=== PATIENT | female | born 1995 | race Caucasian/White ===

== ENCOUNTER 2017-11-24 11:17 | Emergency (ER) | payer OTHER ==
[2017-11-24] MEDS ORDERED: CEFTRIAXONE/SWI 1gm 1 GM/10 ML SYR ONE (12:07)
[2017-11-24] MEDS ORDERED: FENTANYL CITR 100 MCG/2 ML ONE (12:07)
[2017-11-24] MEDS ORDERED: ONDANSETRON 4 MG/2 ML VIAL ONE (12:07)
[2017-11-24 12:19] LABS: Urine Blood 3+ (NEG); Urine Glucose NEGATIVE (NEG); Urine Protein 3+ (NEG)
[2017-11-24 12:20] LABS: Urine Bacteria 20-50 /HPF (<20); Urine RBC 20-50 /HPF (NONE SEEN)
[2017-11-24 12:21] LABS: Urine Culture Reflex Order REFLEXED
[2017-11-24 12:22] LABS: Absolute Lymphocytes (CBC) 1.9 K/uL (0.7-4.9); Absolute Monocytes 0.9 K/uL (0.1-1.3); Absolute Neutrophil 6.5 K/uL (1.8-8.0); Basophils % 0.4 % (0-1.3); Hematocrit 41.6 % (36.0-45.0); Lymphocytes % 20.2 % (15.3-44.8); MCH 31.2 pg (27.0-35.0); MCV 89.9 fL (80-100); MPV 8.7 fL (7.6-11.3); Monocytes % 9.1 % (3.3-12.3); RBC Red Blood Cell Count 4.63 M/uL (3.86-4.86)
[2017-11-24 12:28] LABS: Potassium 3.8 mmol/L (3.5-5.1)
--- NOTE | 2017-11-24 12:55 | RAD REPORT ---
EXAM DESCRIPTION: CTAbdomen Pelvis W Contrast - 11/24/2017 12:40 pm CLINICAL HISTORY: Abdominal pain. iv only;Abd pain COMPARISON: CT ABD PELVIS W CONTRAST dated 01/23/2013 TECHNIQUE: Biphasic CT imaging of the abdomen and pelvis was performed with 100 ml non-ionic IV cont rast. All CT scans are performed using dose optimization technique as appropriate and may include automated exposure control or mA/KV adjustment according to patient size. FINDINGS: The lung bases are clear. The liver, spleen, pancreas, adrenal glands and kidneys are within normal limits. No bowel obstruction, free air, free fluid or abscess. The appendix is normal. No evidence of signi ficant lymphadenopathy. No suspicious bony findings. Urinary bladder wall is thickened with mucosal enhancement suggesting cy stitis. IMPRESSION: Findings suspicious for cystitis are noted.
--- NOTE | 2017-11-24 13:00 | ER ---
Nurse's Notes [facility] Name: Raysa Young Age: 22 yrs Sex: Female : 1995 Arrival Date: 11/24/2017 Time: 11:21 Bed 19 Private MD: None, None Diagnosis: Acute cystitis with hematuria Presentation: 11/24 11:30 Presenting complaint: Patient states: right side flank pain for several days, c/o em burning with urination and frequency for about 10 days, denies N/V, fever. Transition of care: patient was not received from another setting of care. Onset of symptoms was November 13, 2017. Risk Assessment: Do you want to hurt yourself or someone else? Patient reports no desire to harm self or others. Initial Sepsis Screen: Does the patient meet any 2 criteria? No. Patient's initial sepsis screen is negative. Does the patient have a suspected source of infection? No. Patient's initial sepsis screen is negative. Care prior to arrival: None. 11:30 Method Of Arrival: Ambulatory em 11:30 Acuity: JANET 3 iw Triage Assessment: 11:33 General: Appears in no apparent distress. comfortable, Behavior is calm, cooperative. em Pain: Complains of pain in right low back. Musculoskeletal: Capillary refill < 3 seconds, Range of motion: intact in all extremities. 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 - Social history:: Smoking status: Patient/guardian denies using tobacco. - Ebola Screening: : Patient negative for fever greater than or equal to 101.5 degrees Fahrenheit, and additional compatible Ebola Virus Disease symptoms Patient denies exposure to infectious person Patient denies travel to an Ebola-affected area in the 21 days before illness onset No symptoms or risks identified at this time. Screenin:35 Abuse screen: Denies threats or abuse. Nutritional screening: No deficits noted. em Tuberculosis screening: No symptoms or risk factors identified. Fall Risk None identified. Assessment: 11:36 General: Appears in no apparent distress. comfortable, Behavior is calm, cooperative. em Pain: Complains of pain in right low back. Neuro: Level of Consciousness is awake, alert, obeys commands, Oriented to person, place, time, situation. Cardiovascular: Capillary refill < 3 seconds Patient's skin is warm and dry. Respiratory: Airway is patent Respiratory effort is even, unlabored, Respiratory pattern is regular, symmetrical. GI: Abdomen is obese, Patient currently denies nausea, pain, vomiting. : Reports burning with urination, urgency. EENT: No signs and/or symptoms were reported regarding the EENT system. Derm: Skin is intact, Skin is pink, warm \T\ dry. Musculoskeletal: Range of motion: intact in all extremities. 11:45 Reassessment: Patient appears in no apparent distress at this time. I agree with above iw assessment by Joshua Frank LVN. 12:40 Reassessment: Patient appears in no apparent distress at this time. Patient and/or em family updated on plan of care and expected duration. Pain level reassessed. Patient is alert, oriented x 3, equal unlabored respirations, skin warm/dry/pink. 13:17 Reassessment: Patient appears in no apparent distress at this time. Patient and/or em family updated on plan of care and expected duration. Pain level reassessed. Vital Signs: 11:33 BP 125 / 92; Pulse 74; Resp 18; Pulse Ox 98% on R/A; Weight 113.4 kg; Height 5 ft. 3 em in. (160.02 cm); Pain 8/10; 13:16 BP 114 / 67; Pulse 69; Resp 16; Pulse Ox 99% on R/A; Pain 4/10; em 11:33 Body Mass Index 44.29 (113.40 kg, 160.02 cm) em ED Course: 11:21 Patient arrived in ED. mr 11:22 None, None is Private Physician. mr 11:24 Johny Abel PA is PHCP. jr8 11:24 Lan Flood MD is Attending Physician. jr8 11:30 Joshua Frank LVN is Primary Nurse. em 11:33 Arm band placed on. em 11:35 Patient has correct armband on for positive identification. Bed in low position. Call em light in reach. Adult w/ patient. 12:08 Initial lab(s) drawn, by me, sent to lab. Inserted saline lock: 22 gauge in left dh3 forearm, using aseptic technique. Blood collected. 12:11 Radiology exam delayed due to lab results not completed at this time. (BUN/Creatinine). vm2 12:38 CT completed. Patient moved to CT via wheelchair. Patient moved back from CT. cw1 12:40 CT Abd/Pelvis - W/Contrast In Process Unspecified. EDMS 13:19 No provider procedures requiring assistance completed. IV discontinued, intact, em bleeding controlled, No redness/swelling at site. Pressure dressing applied. 13:21 Triage completed. iw Administered Medications: 12:08 Drug: fentaNYL (PF) 50 mcg Route: IVP; Site: left forearm; iw 12:40 Follow up: Response: No adverse reaction; Pain is decreased em 12:08 Drug: Zofran 4 mg Route: IVP; Site: left forearm; iw 13:05 Follow up: Response: No adverse reaction em 12:08 Drug: Rocephin 1 grams Route: IV; Rate: calculated rate; Site: left forearm; iw 13:06 Follow up: Response: No adverse reaction; IV Status: Completed infusion; IV Intake: 10mlem Intake: 13:06 IV: 10ml; Total: 10ml. em Outcome: 12:59 Discharge ordered by . magdaleno 13:19 Discharged to home ambulatory. em 13:19 Condition: good 13:19 Discharge instructions given to patient, Instructed on discharge instructions, follow up and referral plans. no drinking with medication, no driving heavy equipment, medication usage, Demonstrated understanding of instructions, follow-up care, medications, Prescriptions given X 3. 13:21 Patient left the ED. em Addendum: 11/27/2017 07:57 Addendum: Culture Results: Positive urine culture. No further action required. Bacteria s s sensitive to prescribed antibiotic. Signatures: Dispatcher [employer] EDID Lay Camarena mr Frank, Joshua, STONE SETTER METAL OPTICAL FRAMES STONE SETTER [employer]ICAL FRAMES em Lisa Ann RN RN iw Smirch, Shelby, RN RN ss Woodley, Crystal cw1 Johny Abel PA PA jr8 Evangelina Bishop 2 Heidi Tipton 3 Corrections: (The following items were deleted from the chart) 11/24 12:12 12:[address] via wheelchair. vm2 vm2
--- NOTE | 2017-11-24 13:00 | EDPHYS ---
Physician Documentation [facility] Name: Raysa Young Age: 22 yrs Sex: Female : 1995 Arrival Date: 11/24/2017 Time: 11:21 Bed 19 Private MD: None, None ED Physician Lan Flood HPI: 11/24 11:55 This 22 yrs old Female presents to ER via Ambulatory with complaints of flank jr8 pain. 11:55 The patient complains of pain in the right flank. The pain does not radiate. Onset: The jr8 symptoms/episode began/occurred acutely, 10 day(s) ago, and became worse and became persistent. Modifying factors: The symptoms are alleviated by nothing. the symptoms are aggravated by movement. Associated signs and symptoms: Pertinent positives: dysuria. Severity of pain: At its worst the pain was moderate in the emergency department the pain is unchanged. The patient has not experienced similar symptoms in the past. The patient has not recently seen a physician. 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 - Social history:: Smoking status: Patient/guardian denies using tobacco. - Ebola Screening: : Patient negative for fever greater than or equal to 101.5 degrees Fahrenheit, and additional compatible Ebola Virus Disease symptoms Patient denies exposure to infectious person Patient denies travel to an Ebola-affected area in the 21 days before illness onset No symptoms or risks identified at this time. ROS: 11:55 Eyes: Negative for injury, pain, redness, and discharge, ENT: Negative for injury, jr8 pain, and discharge, Cardiovascular: Negative for chest pain, palpitations, and edema, Respiratory: Negative for shortness of breath, cough, wheezing, and pleuritic chest pain, Abdomen/GI: Negative for abdominal pain, nausea, vomiting, diarrhea, and constipation, MS/Extremity: Negative for injury and deformity, Skin: Negative for injury, rash, and discoloration, Neuro: Negative for headache, weakness, numbness, tingling, and seizure. 11:55 Back: Positive for flank pain. Exam: 11:55 Eyes: Pupils equal round and reactive to light, extra-ocular motions intact. Lids and jr8 lashes normal. Conjunctiva and sclera are non-icteric and not injected. Cornea within normal limits. Periorbital areas with no swelling, redness, or edema. ENT: Nares patent. No nasal discharge, no septal abnormalities noted. Tympanic membranes are normal and external auditory canals are clear. Oropharynx with no redness, swelling, or masses, exudates, or evidence of obstruction, uvula midline. Mucous membranes moist. Neck: Trachea midline, no thyromegaly or masses palpated, and no cervical lymphadenopathy. Supple, full range of motion without nuchal rigidity, or vertebral point tenderness. No Meningismus. Cardiovascular: Regular rate and rhythm with a normal S1 and S2. No gallops, murmurs, or rubs. Normal PMI, no JVD. No pulse deficits. Respiratory: Lungs have equal breath sounds bilaterally, clear to auscultation and percussion. No rales, rhonchi or wheezes noted. No increased work of breathing, no retractions or nasal flaring. Skin: Warm, dry with normal turgor. Normal color with no rashes, no lesions, and no evidence of cellulitis. MS/ Extremity: Pulses equal, no cyanosis. Neurovascular intact. Full, normal range of motion. Neuro: Awake and alert, GCS 15, oriented to person, place, time, and situation. Cranial nerves II-XII grossly intact. Motor strength 5/5 in all extremities. Sensory grossly intact. Cerebellar exam normal. Normal gait. 11:55 Abdomen/GI: Inspection: obese Bowel sounds: active, all quadrants, Palpation: soft, in all quadrants, mild abdominal tenderness, in the anterior aspect of right lateral abdomen and right lower quadrant, mass, is not appreciated, rebound tenderness, is not appreciated, voluntary guarding, is not appreciated, involuntary guarding, is not appreciated, no appreciated organomegaly, Indicators: McBurney's point is not tender, Soares's sign is negative, Rovsing's sign is negative, Liver: tenderness, is not appreciated. 11:55 Back: pain, that is mild, of the right flank, ROM is normal, normal spinal alignment noted, CVA tenderness, is absent. Vital Signs: 11:33 BP 125 / 92; Pulse 74; Resp 18; Pulse Ox 98% on R/A; Weight 113.4 kg; Height 5 ft. 3 em in. (160.02 cm); Pain 8/10; 13:16 BP 114 / 67; Pulse 69; Resp 16; Pulse Ox 99% on R/A; Pain 4/10; em 11:33 Body Mass Index 44.29 (113.40 kg, 160.02 cm) em MDM: 11:32 Patient medically screened. ashlee 12:58 Data reviewed: vital signs, nurses notes, lab test result(s), radiologic studies, CT jr8 scan, and as a result, I will discharge patient. Data interpreted: Pulse oximetry: on room air is 98 %. Interpretation: normal. Counseling: I had a detailed discussion with the patient and/or guardian regarding: the historical points, exam findings, and any diagnostic results supporting the discharge/admit diagnosis, lab results, radiology results, the need for outpatient follow up, a family practitioner, to return to the emergency department if symptoms worsen or persist or if there are any questions or concerns that arise at home. Response to treatment: the patient's symptoms have markedly improved after treatment. 11/24 11:44 Order name: Basic Metabolic Panel; Complete Time: 12:56 11/24 11:44 Order name: CBC with Diff; Complete Time: 12:56 11/24 11:44 Order name: Creatinine for Radiology; Complete Time: 12:56 8 11/24 11:44 Order name: Urine Microscopic Only; Complete Time: 12:56 8 11/24 12:16 Order name: Urine Dipstick--Ancillary (enter results); Complete Time: 12:56 mb4 11/24 12:16 Order name: Urine --Ancillary (enter results); Complete Time: 12:56 mb4 11/24 11:44 Order name: Urine Test (obtain specimen); Complete Time: 11:48 11/24 11:44 Order name: IV Saline Lock; Complete Time: 12:09 11/24 11:44 Order name: Labs collected and sent; Complete Time: 12:09 8 11/24 11:44 Order name: CT Abd/Pelvis - W/Contrast; Complete Time: 12:56 11/24 12:22 Order name: Urine Culture EDWV 11/24 11:44 Order name: Urine Dipstick-Ancillary (obtain specimen); Complete Time: 11:48 jr8 Administered Medications: 12:08 Drug: fentaNYL (PF) 50 mcg Route: IVP; Site: left forearm; iw 12:40 Follow up: Response: No adverse reaction; Pain is decreased em 12:08 Drug: Zofran 4 mg Route: IVP; Site: left forearm; iw 13:05 Follow up: Response: No adverse reaction em 12:08 Drug: Rocephin 1 grams Route: IV; Rate: calculated rate; Site: left forearm; iw 13:06 Follow up: Response: No adverse reaction; IV Status: Completed infusion; IV Intake: 10mlem Disposition: 11/24/17 12:59 Discharged to Home. Impression: Acute cystitis with hematuria. - Condition is Stable. - Discharge Instructions: Urinary Tract Infection, Adult. - Prescriptions for Pyridium 200 mg Oral Tablet - take 1 tablet by ORAL route every 8 hours for 3 days; 9 tablet. Tylenol- Codeine #3 300-30 mg Oral Tablet - take 2 tablets by ORAL route every 6 hours As needed; 12 tablet. Macrobid 100 mg Oral Capsule - take 1 capsule by ORAL route every 12 hours for 7 days; 14 capsule. - Medication Reconciliation Form, Thank You Letter, Antibiotic Education, Prescription Opioid Use form. - Follow up: Private Physician; When: 5 - 6 days; Reason: Recheck today's complaints, Continuance of care, Re-evaluation by your physician. - Problem is new. - Symptoms have improved. Addendum: 11/26/2017 13:48 Co-signature as Attending Physician, Lan Flood MD I agree with the assessment and c young plan of care. Signatures: Dispatcher [employer] [facility] Lan Flood MD MD cha Munoz, Edgar, ADAPTIVE PHYSICAL EDUCATION SPECIALIST ADAPTIVE PHYSICAL EDUCATION SPECIALIST em Lisa Ann, JOANNA RN Johny Hart PA PA jr8 Corrections: (The following items were deleted from the chart) 11/24 13:21 12:59 11/24/2017 12:59 Discharged to Home. Impression: Acute cystitis with hematuria. em Condition is Stable. Forms are Medication Reconciliation Form, Thank You Letter, Antibiotic Education, Prescription Opioid Use. Follow up: Private Physician; When: 5 - 6 days; Reason: Recheck today's complaints, Continuance of care, Re-evaluation by your physician. Problem is new. Symptoms have improved. jr8
== END 2017-11-24 13:21 | disposition home or self-care (01) ==
LOC: ER 11:17
DX: N30.01 Acute cystitis with hematuria (principal)
CPT/HCPCS: 36415; 74177; 80048; 81003; 81015; 81025; 85025; 87077; 87086; 87088; 87186; 96365; 96375; 99284; J0696; J2405; J3010; Q9967